=== PATIENT | male | born 1965 | race Caucasian/White ===

== ENCOUNTER 2016-12-24 09:29 | Emergency (ER) | payer OTHER ==
[2016-12-24 10:28] LABS: Hematocrit 46.3 % (42.0-52.0); Hemoglobin 15.9 gm/dL (13.5-18.0); Mean Cell Volume 85.9 fl (78-100); Mean Corpuscular Hemoglobin 29.5 pg (27-31); Mean Corpuscular Hgb Conc 34.3 g/dl (32-36); Mean Platelet Volume 10.2 fl (6.0-9.5); Neutrophil # 6.2 K/mm3 (1.3-6.0); Neutrophil % 87.7 % (42-75.0); Platelet Count 178 K/mm3 (150-450); Red Blood Count 5.39 M/mm3 (4.7-6.0); Red Cell Distribution Width 12.8 % (11.5-14.0); White Blood Count 7.1 K/mm3 (4.0-10.5)
--- NOTE | 2016-12-24 10:38 | ERNOTE ---
Abdominal HPI - Narrative Date of Service: 12/24/16 - General Chief Complaint: Abdominal Pain Time Seen by Provider: 12/24/16 10:05 Source: patient Exam Limitations: no limitations - Immun/Allergies/Home Medications Immunizatons: IMMUNIZATION HX Immunizations Up to Date Yes History of Influenza Vaccine No Allergies/Adverse Reactions: Allergies atorvastatin [From Lipitor] Allergy (Severe, Verified 12/24/16 10:06) Muscle Pain Home Medications: HOME MEDICATIONS Petrolatum,White [Aquaphor] 85 gm TP HS 05/27/12 [Last Taken 12/20/13 85 GM] Acetaminophen [Tylenol] 650 mg PO QID PRN #0 tablet 06/02/12 [Last Taken 650 MG] Ciprofloxacin HCl [Cipro] 500 mg PO BID 12/24/16 [Last Taken Unknown] Pantoprazole Sodium [Protonix] 40 mg PO DAILY 12/24/16 [Last Taken Unknown] Warfarin Sodium 8 mg PO 12/24/16 [Last Taken Unknown] Warfarin Sodium [Coumadin] 9 mg PO MOWEFR 12/24/16 [Last Taken Unknown] metroNIDAZOLE [Flagyl] 500 mg PO TID 12/24/16 [Last Taken Unknown] - History of Present Illness Narrative: Pt. comes in with BLQ pain and LUQ pain. Pt. denies any SOB, CP, NVD, but does state that he has had black tarry stools intermittently since this started a week ago. Pt. states that he saw Dr pillo flanagan twice since onset and Danica Stinson once since onset of symptoms has been intermittently eating a clear liquid diet and is on Cipro and flagyl for the symptoms. Pt. denies any alleviating factors, aggravating factors, fever, and denies that pain is so bad that he needs medications for pain. Review of Systems - Review of Systems Constitutional: Present: no symptoms reported. Absent: recent illness, fever, chills, weakness, fatigue, malaise EYE: Present: no symptoms reported ENT: Present: no symptoms reported Respiratory: Present: no symptoms reported. Absent: shortness of breath, cough , wheezing Cardiology: Present: no symptoms reported. Absent: chest pain Gastrointestinal/Abdominal: Present: abdominal pain. Absent: nausea, vomiting, diarrhea, constipation, eating less, drinking less Genitourinary: Present: no symptoms reported Musculoskeletal: Present: no symptoms reported. Absent: back pain, joint pain Skin: Present: no symptoms reported Neurological: Present: no symptoms reported. Absent: headache, dizziness/light- headedness, numbness, tingling All Other Systems: All systems neg except as marked - Patient's Past Medical History Patient History - Medical: No pertinent hx Patient History - Cardiac/Respiratory: Hyperlipidemia Patient History - Cancer: No Hx of Cancer Patient History - Surgical Procedures: T & A Patient History - Other: None - Family History Mother Family History - Medical: Hypothyroidism Family History - Cardiac/Respiratory: No pertinent hx Family History - Cancer: No pertinent family hx Father Family History - Medical: Other Family History - Cardiac/Respiratory: No pertinent hx Family History - Cancer: No pertinent family hx - Social History Living Situations: alone Abuse History: No History of abuse Psych History: No pertinent hx Smoking Status: Never smoker Have you smoked in the past 12 months: No Patient requests Smoking Cessation Consult: No Initiate information on Smoking Cessation: No Alcohol Use: none Drug Use: none - Immunizations Immunizations Up to Date: Yes History of Influenza Vaccine: No Physical Exam - Physical Exam General Appearance: Present: wd/wn, alert, no apparent distress Head Exam: Present: normal inspection, no evidence of injury Eye Exam: Normal inspection: bilateral Ears, Nose, Throat: Present: normal ENT inspection, normal pharynx Neck: Present: normal inspection, nontender. Absent: lymphadenopathy (R), lymphadenopathy (L) Respiratory: Present: no respiratory distress, normal breath sounds, no accessory muscle use, chest nontender, lungs clear Cardiovascular/Chest: Present: regular rate, rhythm, no murmur, normal peripheral pulses Gastrointestinal/Abdominal: Present: normal bowel sounds, soft, no organomegaly , tenderness - LLQ and RLQ pinpoint at flexures Back Exam: Present: normal inspection Extremity Exam: Present: normal inspection, no edema Neurological Exam: Present: alert, oriented, normal mood/affect, no motor/ sensory deficits Skin Exam: Present: normal color, warm/dry. Absent: pallor, skin rash ED Progress - Results and Orders Patient's Lab Results:: I have reviewed the patient's lab results. - Vital Signs Patient's Vital Signs:: I have reviewed the patient's vital signs. Vital Signs: Vital Signs 12/24/16 09:48 Temperature 36.4 C L Pulse Rate 91 Respiratory 16 Rate Blood Pressure 142/92 O2 Sat by Pulse 96 Oximetry - X-Ray X-Ray #1 X-Ray: abdomen Interpretation: Interp. by me X-ray Comments: phleboliths no free air - Progress/Reassessment Chief Complaint: Abdominal Pain Departure Clinical Impression: Diverticulitis - Departure Disposition: Home self-care Condition: Good Instructions: Diverticulitis, [id number] Additional Instructions: Continue current plan and medications follow up with pimary provider on Sunday. Referrals: Sal Acosta MD [Primary Care Provider] -
[2016-12-24 10:42] LABS: Albumin * 4.3 gm/dl (3.4-5.0); Anion Gap 14.3 mmol/L (6.8-13.8); BUN/Creatinine Ratio 5.7 (9.0-21.6); Bilirubin, Total 0.8 mg/dL (0.0-1.1); Calcium * 8.6 mg/dL (7.9-10.9); Carbon Dioxide 25.2 mmol/L (24-32.6); Potassium 3.5 mmol/L (3.4-4.6); Prothrombin Time (Patient) 18.7 Seconds (9.0-11.0); Total Protein 7.7 gm/dL (6.2-8.2)
[2016-12-24 10:43] LABS: INR 1.86 INR (0.90-1.10)
[2016-12-24 11:00] VITALS: BP 121/91
[2016-12-24 11:23] LABS: Urine Bilirubin Negative (NEGATIVE); Urine Ketone Negative (NEGATIVE); Urine Nitrite Negative (NEGATIVE); Urine Protein Negative (NEGATIVE); Urine Specific Gravity <=1.005 SP.GR. (1.005-1.030); Urine Urobilinogen Normal (NORMAL)
[2016-12-24 11:28] LABS: Urine Appearance Clear; Urine Blood 5 /ul (NEGATIVE); Urine Color Yellow
[2016-12-24 11:29] LABS: Urine Bacteria None Seen; Urine RBC 0-5 /hpf (0-5); Urine WBC None Seen /hpf (0-5)
== END 2016-12-24 11:05 | disposition home or self-care (01) ==
LOC: ER 09:29
DX: K57.92 Diverticulitis of intestine, part unspecified, without perforation or abscess without bleeding (principal)